=== PATIENT | female | born 1975 | race Caucasian/White ===

== ENCOUNTER 2020-10-09 20:05 | Emergency (ER) | payer OTHER, SELFPAY ==
[2020-10-09 20:10] VITALS: BP 124/74; PULSE 101; RESP 15; TEMP 37.3; O2SAT 97; BMI 35.8
[2020-10-09 20:12] VITALS: BP 124/74; PULSE 101; RESP 15; O2SAT 98
--- NOTE | 2020-10-09 20:16 | US_ITS ---
STUDY: FIRST TRIMESTER OBSTETRICAL ULTRASOUND REASON FOR EXAM: Female, 45 years old vaginal bleeding LMP: 07/23/2020 TECHNIQUE: Transabdominal TECHNICAL QUALITY: Adequate. PRIOR ULTRASOUND: None. FINDINGS: There is no visualization of an intrauterine gestational sac. The uterus measures 14.9 x 8.4 x 5.3 cm. Thickened heterogeneous endometrium measuring 26 mm. There is no demonstrated uterine fibroid. The cervix is closed. The right ovary measures 3.6 x 2.7 x 1.8 cm. There is no right ovarian cyst. There is no visualized right adnexal mass or complex lesion. The left ovary is not visualized . There is no fluid in the cul de sac. US/Init OB < 14Wks US IMPRESSION: Thickened heterogeneous endometrium. No intrauterine gestation is noted. Electronically Signed: Jean Pierre Landon DO at 21:25 EDT Tel [phone], Service support ,
--- NOTE | 2020-10-09 20:17 | ED.DCSUM_ITS ---
History of Present Illness Chief Complaint: Vag Bld, Preg Informant: Patient Narrative: 45-year-old G 14 P 11 at approximately 11 weeks presents with concern for vaginal bleeding. States that she has had intermittent spotting since Wednesday which is now over the past 72 hours. States that over the past 6 hours she has had significant vaginal bleeding saturating 1 pad per hour. States she is passing clots. Denies any significant pelvic or abdominal pain. Denies any chest pain, shortness of breath, dizziness or lightheadedness. No family history of bleeding disorders. 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 No confirmatory ultrasound at this stage. Patient follows with a local child care counselor. Past Medical History - Allergies and Home Meds Allergies/Adverse Reactions: Allergies No Known Allergies Allergy (Verified 10/09/20 20:09) Primary Care Physician: Thomas Ram DO [Primary Care Provider] - Prior records reviewed: Yes Past Medical History: None Surgical History: no surgical history Lives: With Family Smoking Status: Current every day smoker Alcohol: None Drugs: None Review of Systems General: Denies: Chills, Fever, Sweats Eyes: Denies: Visual changes - bilaterally, Diplopia ENT: Denies: Rhinorrhea, Sore throat Cardiovascular: Denies: Chest pain, Palpitations Respiratory: Denies: Dyspnea, Cough, Dyspnea on exertion Gastrointestinal: Denies: Abdominal pain, Nausea, Vomiting, Diarrhea, Melena, Hematochezia Genitourinary: Reports: - - vaginal bleeding. Denies: Dysuria, Hematuria, Frequency Musculoskeletal: Denies: Back pain, Extremity Pain Skin: Denies: Rash, Wounds Neurological: Denies: Headache, Weakness, Numbness Physical Exam Vital Signs/Narrative: Vital Signs Temp Pulse Resp BP Pulse Ox 10/09/20 20:12 101 H 15 124/74 H 98 10/09/20 20:10 99.1 F 101 H 15 124/74 H 97 Inital Vital Signs reviewed: Yes General: Well nourished, Well developed, No Acute Distress Head: Normocephalic, Atraumatic Eyes: Perrl, EOMI ENT: Moist mucous membranes, No rhinorrhea Neck: Supple, Nontender Cardiovascular: Regular rate, Regular rhythm, No murmurs Respiratory: No distress, CTA bilaterally, Chest nontender Abdomen: Soft, Nontender, Nondistended, Normal bowel sounds Back: Nontender, Normal Inspection Extremities: Nontender, No edema Skin: Normal color, No rash Neurological: Alert, Oriented x3, Cranial nerves II-XII grossly intact, Normal Strength, Normal Sensation Psychological: Normal affect, Normal Mood Diagnostic/Tx/Re-eval Clinical Impression(s) from Imaging Studies Obstetrics Ultrasound 10/09/20 20:16 IMPRESSION: Thickened heterogeneous endometrium. No intrauterine gestation is noted. Electronically Signed: Jean Pierre Landon DO at 21:25 EDT Tel [phone], Service support , Laboratory Data 10/09/20 10/09/20 20:23 20:23 WBC 14.5 H RBC 4.27 Hgb 13.0 Hct 39.9 MCV 93.4 MCH 30.4 MCHC 32.6 RDW Std Deviation 43.9 RDW Coeff of Debbie 12.8 Plt Count 287 MPV 9.1 Immature Gran % (Auto) 0.400 Neut % (Auto) 74.3 H Lymph % (Auto) 17.3 L Hopkins % (Auto) 6.9 Eos % (Auto) 0.8 Baso % (Auto) 0.3 Absolute Neuts (auto) 10.7 H Absolute Lymphs (auto) 2.50 Nucleated RBC % 0 HCG, Quant 3129 H - Medical Decision Making Appears well and nontoxic. Vital signs within normal limits. Normotensive. No tenderness of the abdomen. Lower than expected hCG. Patient has a nonspecific leukocytosis with a normal hemoglobin. Transvaginal ultrasound shows no intrauterine . No evidence of ectopic either. Spoke with the patient who states her bleeding is slowed. Likely completed spontaneous . We will follow-up with her child care counselor tomorrow. Asked to return for new or worsening symptoms. Patient agreeable and stable time of discharge. Impression: 1. Completed spontaneous ED Disposition - Plan for ED Patient: Disposition: Home or Assisted Living Instructions: ED MISCARRIAGE Completed Referrals: Thomas Ram DO [Primary Care Provider] - 2 Days
[2020-10-09] MEDS: 0.9% Normal Saline 1,000 ML 1000 ML IV (20:20)
[2020-10-09 20:31] LABS: Absolute Neutrophil Count 10.7 X10^3/uL (2.0-7.7); Basophil# 0.05 X10^3/uL; Basophil% 0.3 % (0-1); Eosinophil# 0.11 X10^3/uL; Eosinophils% 0.8 % (0-5); Hematocrit 39.9 % (37-47); Lymphocyte % 17.3 % (19-41); Mean Corp Hgb Conc 32.6 g/dL (32-36); Mean Corpuscular Hgb 30.4 pg (27.0-32.0); Mean Corpuscular Volume 93.4 fL (81-99); Mean Platelet Vol. 9.1 fl (6.2-12.0); Monocyte% 6.9 % (0-10); NRBC Flagged by Analyzer 0 % (0-5); Neutrophil # 10.74 X10^3/uL (2.7-7.7); Neutrophil % 74.3 % (47-70); Platelet Count 287 K/mm3 (150-450); RBC Distribution Width CV 12.8 % (11.6-14.6); RBC Distribution Width SD 43.9 fl (35.1-43.9); Red Blood Count 4.27 M/mm3 (4.2-5.4); White Blood Count 14.5 K/mm3 (4.4-11.0)
[2020-10-09 21:04] LABS: hCG Titer Quant., Serum 3129 mIU/mL (1-3)
[2020-10-09 22:02] VITALS: BP 111/64; PULSE 88; RESP 18; O2SAT 98
== END 2020-10-09 22:03 | disposition home or self-care (01) ==
PROVIDERS: Emergency Provider Emergency Medicine; PCP Family Medicine
DX: O03.9 Complete or unspecified spontaneous abortion without complication (principal); F17.200 Nicotine dependence, unspecified, uncomplicated
CPT/HCPCS: 76801; 84702; 85025; 99285